=== PATIENT | female | born 1955 | race African-American/Black ===

== ENCOUNTER 2020-08-25 15:06 | Emergency (ER) | payer MEDICARE, OTHER ==
[~2020-08-25] VITALS: Ht 165.1 cm; Wt 104.5 kg
[~2020-08-25 15:06] MED LIST: OMEP40CA21 PO; amlodipine PO
[2020-08-25] MEDS ORDERED: ACETAMINOPHEN 500 MG TABLET PO ONE (15:45)
[2020-08-25 18:07] VITALS: BP 150/70
== END 2020-08-25 18:10 | disposition home or self-care (01) ==
LOC: EMS 15:11
DX: S09.90XA Unspecified injury of head, initial encounter (principal); I10 Essential (primary) hypertension; V43.52XA Car driver injured in collision with other type car in traffic accident, initial encounter; Y93.89 Activity, other specified; Y92.488 Other paved roadways as the place of occurrence of the external cause; Y99.8 Other external cause status
CPT/HCPCS: 70450; 72125; 99285